=== PATIENT | female | born 1950 | race Caucasian/White ===

== ENCOUNTER 2020-01-27 14:22 | Outpatient (CLI) | payer MEDICARE, SELFPAY ==
--- NOTE | ~2020-01-27 | MM_ITS ---
EXAMINATION: MM screening [place]onak BI w dony HISTORY: Screening TECHNIQUE: Craniocaudal and mediolateral oblique 3-D tomosynthesis images were obtained and synthetic 2-D images were generated. CAD analysis was submitted and interpreted. COMPARISON: No prior mammogram is available for comparison at this institution. BREAST PARENCHYMAL COMPOSITION: The breasts are heterogeneously dense, which may obscure small masses . FINDINGS: Possible new approximately 1.6 cm mass in posterior upper outer right breast. Diagnostic ri ght mammogram and right breast ultrasound examination are recommended. Otherwise there is no evidence of suspicious mass, calcification, or architectural distortion to sugg est malignancy in either breast. There has been no suspicious interval change. IMPRESSION: 1. New 1.6 cm mass suggested in posterior upper outer right breast 2. Diagnostic right mammogram and right breast ultrasound examination are recommended BI-RADS Category 0: Incomplete: Needs additional imaging evaluation. Reviewed, dictated and finalized at location A. IMPRESSION: 1. New 1.6 cm mass suggested in posterior upper outer right breast 2. Diagnostic right mammogram and right breast ultrasound examination are recom mended BI-RADS Category 0: Incomplete: Needs additional imaging evaluation.
== END 2020-01-27 14:23 | disposition home or self-care (01) ==
LOC: ANHIMG 14:24
PROVIDERS: PCP Obstetrics & Gynecology; Visit Provider Obstetrics & Gynecology
DX: Z12.31 Encounter for screening mammogram for malignant neoplasm of breast (principal); R92.8 Other abnormal and inconclusive findings on diagnostic imaging of breast
CPT/HCPCS: 77063; 77067

== ENCOUNTER 2020-02-10 11:13 | Outpatient (CLI) | payer MEDICARE, SELFPAY ==
--- NOTE | ~2020-02-10 | MM_ITS ---
EXAMINATION: MM diagnostic mammo unilat RT HISTORY: Follow-up TECHNIQUE: Additional 3-D tomosynthesis images of the right breast were performed and synthetic 2-D i mages were generated. CAD analysis was submitted and interpreted. COMPARISON: Comparison to multiple prior studies sequentially, with oldest reviewed study dated 08/25. BREAST PARENCHYMAL COMPOSITION: The breasts are heterogenously dense, which may obscure small masses. FINDINGS: Stable benign-appearing mass in the upper outer quadrant of the right breast which contains a mixture of fatty and fibroglandular tissue (i.e. mammary hamartoma). No suspicious masses to sugge st malignancy. IMPRESSION: 1. Stable right mammogram. Benign findings. 2. Routine yearly screening mammogram and regular clinical breast examination are recommended. BI-RADS Category 2: Benign finding(s). Reviewed, dictated and finalized at location A. IMPRESSION: 1. Stable right mammogram. Benign findings. 2. Routine yearly screening mammogram and regular clinical breast examination a re recommended. BI-RADS Category 2: Benign finding(s).
== END 2020-02-10 11:14 | disposition home or self-care (01) ==
PROVIDERS: PCP Obstetrics & Gynecology; Visit Provider Obstetrics & Gynecology
DX: R92.8 Other abnormal and inconclusive findings on diagnostic imaging of breast (principal)
CPT/HCPCS: 77065

== ENCOUNTER 2020-03-30 07:38 | Outpatient (CLI) | payer MEDICARE, SELFPAY ==
--- NOTE | ~2020-03-30 | NM_ITS ---
NM stress w perf spect multi Procedure: The patient was stressed using Modified Johan protocol. Prior to the end of exercise 30.8 mCi Tc 99m IV administered. Rest imaging performed following administration of 10.3 mCi Tc 99m IV. Images were reformatted into short axis, horizontal and vertical long axis sections for visual and q uantitative analysis. Indication: Chest pain Comparison: None Findings: Computer assisted qualitative and quantitative analysis of the immediate and delayed images revealed normal left ventricular perfusion without evidence of fixed or reversible perfusion abnorma lity to suggest ischemia or infarction. Normal left ventricular cavity size, wall motion and ejectio n fraction. Left ventricular ejection fraction measures 76%. Impression: 1: No scintigraphic evidence of resting or stress induced perfusion abnormality. 2: Normal left ventricle ejection fraction measuring 76%. Reviewed, dictated and finalized at location B. Impression: 1: No scintigraphic evidence of resting or stress induced perfusion abnormality . 2: Normal left ventricle ejection fraction measuring 76%.
--- NOTE | 2020-03-30 08:59 | ECG_ITS ---
Measurements Intervals [place] Rate: 81 P: -14 [place]: 152 QRS: 12 QRSD: 82 T: 9 QT: 385 QTc: 447 Interpretive Statements SINUS RHYTHM INCOMPLETE RIGHT BUNDLE BRANCH BLOCK LOW QRS VOLTAGE IN PRECORDIAL LEADS BORDERLINE ECG Electronically Signed On 03-30-2020 10:10:57 CDT by Arden Azar D.O.
--- NOTE | 2020-03-30 08:59 | EST_ITS ---
Patient Info Name: Na Stoll Age: 69 years : 1950 Gender: Female Ht: 63 in Wt: 157 lbs BSA: 1.80 m2 Exam Date: 03/30/2020 9:31 AM Exam Location: [facility] Stress Patient Status: Outpatient Admit Date: 03/30/2020 Staff Ordering Physician: Sesar Altman MD Attending Provider: Sesar Altman MD Exercise Technologist: Sienna Dickson RDCS Exercise Physician: Arden Azar DO Exam Type: CA stress test treadmill w NM Study Info Indications R07.89 - Other chest pain A pharmacological stress test was performed. Summary 1. 1. Negative Johan exercise stress test for ischemic ST changes by ECG criteria. 2. 2. Good functional capacity, achieving 7 METs of workload. 3. 3. Appropriate HR response to exercise. 4. 4. Appropriate HR recovery at 1 minute post exercise. 5. 5. Nuclear scan to follow and will be reported separately. Please correlate with it. 6. 6. Patient informed of the above results. Protocol: Johan Stress ECG Details Stage: REST Duration (min): 6 min : 14 sec Speed (mph): 0.0 Grade (%): 0 HR (bpm): 73 SBP (mmHg): 133 DBP (mmHg): 83 METS: --- Stage: REST Duration (min): 14 min : 2 sec Speed (mph): 0.0 Grade (%): 0 HR (bpm): 85 SBP (mmHg): 133 DBP (mmHg): 83 METS: --- Stage: STAGE 1 Duration (min): 1 min : 0 sec Speed (mph): 1.7 Grade (%): 10 HR (bpm): 108 SBP (mmHg): 133 DBP (mmHg): 83 METS: --- Stage: STAGE 1 Duration (min): 2 min : 0 sec Speed (mph): 1.7 Grade (%): 10 HR (bpm): 118 SBP (mmHg): 133 DBP (mmHg): 83 METS: --- Stage: STAGE 1 Duration (min): 3 min : 0 sec Speed (mph): 1.7 Grade (%): 10 HR (bpm): 123 SBP (mmHg): 179 DBP (mmHg): 82 METS: --- Stage: STAGE 2 Duration (min): 1 min : 0 sec Speed (mph): 2.5 Grade (%): 12 HR (bpm): 134 SBP (mmHg): 179 DBP (mmHg): 82 METS: --- Stage: STAGE 2 Duration (min): 2 min : 0 sec Speed (mph): 2.5 Grade (%): 12 HR (bpm): 141 SBP (mmHg): 192 DBP (mmHg): 84 METS: --- Stage: STAGE 2 Duration (min): 2 min : 30 sec Speed (mph): 2.5 Grade (%): 12 HR (bpm): 143 SBP (mmHg): 192 DBP (mmHg): 84 METS: --- Stage: RECOVERY Duration (min): 0 min : 29 sec Speed (mph): 0.0 Grade (%): 0 HR (bpm): 138 SBP (mmHg): 192 DBP (mmHg): 84 METS: --- Stage: RECOVERY Duration (min): 1 min : 29 sec Speed (mph): 0.0 Grade (%): 0 HR (bpm): 105 SBP (mmHg): 197 DBP (mmHg): 82 METS: --- Stage: RECOVERY Duration (min): 2 min : 29 sec Speed (mph): 0.0 Grade (%): 0 HR (bpm): 92 SBP (mmHg): 197 DBP (mmHg): 82 METS: --- Stage: RECOVERY Duration (min): 3 min : 29 sec Speed (mph): 0.0 Grade (%): 0 HR (bpm): 87 SBP (mmHg): 166 DBP (mmHg): 79 METS: --- Stage: RECOVERY
== END 2020-03-30 07:39 | disposition home or self-care (01) ==
LOC: ANHCARD 07:42
PROVIDERS: PCP Internal Medicine; Visit Provider Internal Medicine
DX: I10 Essential (primary) hypertension (principal); R94.31 Abnormal electrocardiogram [ECG] [EKG]; I45.10 Unspecified right bundle-branch block
CPT/HCPCS: 78452; 93005; 93017; A9502

== ENCOUNTER 2021-10-03 10:41 | Outpatient (CLI) | payer MEDICARE, SELFPAY ==
--- NOTE | ~2021-10-03 | MR_ITS ---
EXAMINATION: MR knee LT wo con DATE: 10/03/2021 11:24 INDICATION: Left knee pain TECHNIQUE: Magnetic resonance imaging (MRI) of the left knee was performed without intravenous contra st. Sequences included coronal PD-weighted FSE, coronal PD-weighted FS FSE, sagittal T2-weighted FSE , sagittal PD-weighted FS FSE and axial PD weighted fat saturated FSE. COMPARISON: Left knee radiographs dated 09/22/2021 FINDINGS: Medial compartment: Complex tear of the body and posterior horn of the medial meniscus. Partial-thickness cartilage loss and deep fissuring along the anterior to central weightbearing medial femoral condyle. There is minim al cortical irregularity along the central weightbearing medial femoral condyle. Mild partial-thickne ss cartilage loss with smooth chondral surface along the medial tibial plateau. Small marginal osteop hytes are present. Lateral compartment: Lateral meniscus is normal. Articular cartilage is normal. Patellofemoral compartment: Partial-thickness chondral ulceration with mild underlying cortical irregularity along the inferior m argin of the medial trochlea. Small marginal osteophytes are present. Ligaments and tendons: Anterior and posterior cruciate ligaments are normal. The medial collateral ligament and fibular jeannette ateral ligament complex are normal. The extensor mechanism is normal. The visualized medial and later al hamstring tendons as well as the iliotibial band are normal. Fluid: Moderate-sized left knee joint effusion. No loose osteochondral bodies identified. Moderate-sized Redd er's cyst measuring 6.0 x 2.9 x 1.4 cm. Osseous/other: Normal marrow signal. No fracture or pathologic marrow replacing process. IMPRESSION: 1. Complex medial meniscal tear. 2. 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 3. Minimal patellofemoral osteoarthritis with small region of high-grade chondromalacia. 4. Moderate-sized left knee joint effusion and moderate-sized Boyd's cyst. Reviewed, dictated and finalized at location B. IMPRESSION: 1. Complex medial meniscal tear. 2. Mild osteoarthritis in the medial compartment with moderate to high-grade ch ondromalacia. 3. Minimal patellofemoral osteoarthritis with small region of high-grade chondr omalacia. 4. Moderate-sized left knee joint effusion and moderate-sized Boyd's cyst.
== END 2021-10-03 10:42 | disposition home or self-care (01) ==
LOC: ANHIMG 10:45
PROVIDERS: PCP Internal Medicine; Visit Provider Orthopaedic Surgery
DX: S83.232A Complex tear of medial meniscus, current injury, left knee, initial encounter (principal); X58.XXXA Exposure to other specified factors, initial encounter; M17.12 Unilateral primary osteoarthritis, left knee; M25.462 Effusion, left knee; M71.22 Synovial cyst of popliteal space [Baker], left knee
CPT/HCPCS: 73721

== ENCOUNTER 2021-10-18 09:32 | Outpatient (CLI) | payer MEDICARE, SELFPAY ==
--- NOTE | 2021-10-18 09:42 | ECG_ITS ---
Measurements Intervals [place] Rate: 95 P: 52 [place]: 120 QRS: 13 QRSD: 89 T: 11 QT: 359 QTc: 453 Interpretive Statements SINUS RHYTHM BORDERLINE T WAVE ABNORMALITY- INFERIOR LEADS BASELINE ARTIFACT- I, III, AVL, AVF, V1, V5-V6 BORDERLINE ECG Electronically Signed On 10-18-2021 9:52:26 CDT by Arden Azar D.O.
== END 2021-10-18 09:33 | disposition home or self-care (01) ==
LOC: ANHSURGERY 09:35
PROVIDERS: PCP Internal Medicine; Visit Provider Orthopaedic Surgery
DX: I10 Essential (primary) hypertension (principal); Z01.818 Encounter for other preprocedural examination; R94.31 Abnormal electrocardiogram [ECG] [EKG]
CPT/HCPCS: 93005

== ENCOUNTER 2021-10-26 02:09 | Day surgery (SDC) | payer MEDICARE, SELFPAY ==
[2021-10-14 10:59] VITALS: BMI 27.9
--- NOTE | 2021-10-14 11:08 | PC.NURSE ---
Report to the Outpatient Waiting Room, entrance under the green pavilion located off [facility], at time _0900_ on date _10/26/21_. OR Time: _1100_. - You and your visitor will be asked a series of questions to screen for COVID 19 for your protection. - Only one visitor is allowed at this time. - The patient visitor is requested to leave or wait in car when not with patient. - A mask is required within the hospital. Patients may have clear liquids (water, carbonated beverages, clear teas, apple juice) until 3 hours prior to surgery (0800 AM) with a maximum of 20 ounces. - No food from midnight until time of surgery Take the following medications with a SIP of water the morning of surgery: _NONE_ Medications to discontinue per ANESTHESIA - VITAMIN D3 - 3 DAYS PRIOR TO SURGERY, Date to take last dose 10/22/21_ Please no make-up, nail faroese, hairspray, perfume, deodorant, or body powder the day of surgery. No jewelry (including any body piercings) or valuables the day of surgery, leave them at home. Please take a shower or bath the night before, or the morning of, surgery with an antibacterial soap. Wear comfortable, loose fitting clothing. - Jewelry must be removed prior to entering the operating room. Rings and piercings that are not removed may be cut off. - The hospital will not accept responsibility for valuables. - Please leave all valuables, including medications, at home the day of surgery. If you are going home after surgery, a licensed stake driver must drive you home. - NO public transportation without another adult. - We recommend that an adult stay with you for 24 hours following discharge. - We also recommend that you do not drive, make important decision, drink alcoholic beverages, or take any drugs that were not prescribed by your health care provider for at least 24 hours after your discharge time. Follow any additional instructions given to you from your surgeon. If you or anyone in your household have experienced Covid symptoms in the past week, please notify your surgeon or the nurse liaison at the phone number below for possible testing. Telephone instructions given to ____PT and asked if any additional questions and then verbalized understanding. Patient advised to call surgeon office or pre surgery nurse liaison [phone] if any additional questions.
--- NOTE | 2021-10-25 09:31 | WPDANESEPPF ---
Anes - Initial Pre Proc Eval Procedure: Operation Date: 10/26/21 07:30 Proposed Procedures p Left Knee Arthroscopy - Lewis Cristobal MD Date/Time: 10/25/21 09:31 Surgeon: Lewis Cristobal MD Pre Op Diagnosis: Lt Knee Recurrent Medial Meniscus Tear Patient Data Age: 70 Gender: F Height: 1.61 m Weight: 72.72 kg Allergies Allergy/AdvReac Type Severity Reaction Status Date / Time No Known Allergies Allergy Verified 10/26/21 06:24 Home Medications Medication Instructions Recorded Confirmed Type Vascepa 1 gram capsule 2 g PO BID 90 Days #360 cap NS 04/06/21 10/26/21 Rx cetirizine [Zyrtec] 10 mg PO QAM 10/14/21 10/26/21 History cholecalciferol (vitamin D3) 125 mcg PO QAM 10/14/21 10/26/21 History fluticasone propionate [Flonase 2 spray NASAL HS 10/14/21 10/26/21 History Allergy Relief] lisinopril-hydrochlorothiazide 1 tablet PO HS 10/14/21 10/26/21 History metformin 500 mg PO QAM 10/14/21 10/26/21 History omeprazole 40 mg PO QAM 10/14/21 10/26/21 History rosuvastatin [Crestor] 40 mg PO HS 10/14/21 10/26/21 History denosumab 60 mg/mL subcutaneous 60 mg SUBCUT [id number] #1 ml 10/18/21 10/26/21 Rx syringe Patient hx anesthesia problems: none Family hx anesthesia problems: none Results Review: All pre-operative results and documents have been reviewed as part of the pre-operative evaluation. [facility] Past Medical History Medical History (Updated 10/25/21 @ 09:32 by Jeramie Dockery MD) Benign essential hypertension GERD (gastroesophageal reflux disease) Mixed hyperlipidemia Nondisplaced fracture of distal end of radius with routine healing Overweight (BMI 25.0-29.9) Type 2 diabetes mellitus without complication Family History Family History Father Hypertension Cerebrovascular accident Family history of alcoholism Sibling Hypertension Family history of malignant neoplasm Social History Social History (Updated 10/10/21 @ 11:26 by Aline Hendrickson MA) Smoking status: Never smoker Second hand tobacco smoke exposure: No Alcohol intake: current Alcohol use details: STATES MAYBE 1 DRINK/MONTH Substance use: never Substance use type: does not use Living arrangements: with family Gender identity (if verbalized by the patient): Female Spiritual care concerns: No Anes - Eval Final PreProcedure Day of Procedure 10/25/21 09:31 Patient weight: overweight Heart: regular rate and rhythm Lungs: clear to auscultation and normal air movement Airway: Mallampati scale class II Neurological: alert and oriented Last oral intake: >/= 8 hours ASA classification: III Emergent: no Anesthetic plan: proceed Anesthesia type and monitoring: general LMA Results Review: All pre-operative results and documents have been reviewed as part of the pre-operative evaluation. Informed Consent: The patient's anesthetic plan and its attendant risks and benefits were discussed with the patient/family/POA. Questions were solicited and answers provided to the satisfaction of the patient/family/POA.
[2021-10-26] VITALS (10 sets, daily range): BP systolic 113–140; BP diastolic 60–91; PULSE 79–96; RESP 12–20; TEMP 36.1–36.6; O2SAT 92–100
[2021-10-26] MEDS: ACETAMINOPHEN 500 MG TABLET 1000 MG PO (06:26)
[2021-10-26] MEDS: CELECOXIB 200 MG CAPSULE PO (06:27)
[2021-10-26] MEDS: LACTATED RINGERS 1,000 ML 30 ML IV CONT ×2 (06:35→09:18)
[2021-10-26 06:52] LABS: Glucose Point of Care 143 mg/dl (65-105)
--- NOTE | 2021-10-26 07:47 | WPDHPUPDATE1 ---
History and Physical Update Update Date/Time: 10/26/21 07:47 History and Physical has been reviewed, including an updated exam of the patient. There are NO changes in the patient's condition. Risks, benefits, and alternatives have been discussed and questions answered. Patient agrees to proceed with procedure.
[2021-10-26] MEDS: ceFAZolin 2 GM/D5W 50 ML 2 GM/50 ML BAG IVPB (07:53)
--- NOTE | 2021-10-26 09:30 | W.PM.PROC2 ---
Procedure Note - Detailed Date of Procedure 10/26/21 Pre-op Diagnosis Lt Knee Recurrent Medial Meniscus Tear Post-op Diagnosis Other (LEFT MEDIAL AND LATERAL MENISCUS TEAR) Procedure Performed LEFT KNEE SCOPE Surgeon Lewis Cristobal MD Anesthesia General Description of Procedure PATIENT WAS TAKEN TO THE OR. THE LEFT LEG WAS PREPPED AND DRAPED STERILE. TROCARS WERE PLACED IN THE USUAL FASHION. CAMERA WAS INTRODUCED. THERE WAS CHONDROMALACIA TO THE PATELLA FEMORAL JOINT. THERE WAS A LOT OF SYNOVITIS IN ALL COMPARTMENTS. THE MEDIAL COMPARTMENT SHOWED CHONDROMALACIA TO THE MEDIAL FEMORAL CONDYLE. A SHAVER WAS USED TO PREFORM A CHONDROPLASTY. THERE WAS A LARGE COMPLEX MEDIAL MENISCUS TEAR. THE TEAR WAS RESECTED WITH A BITER AND A SHAVER DOWN TO A SMOOTH BASE. THE ACL WAS INTACT. THE LATERAL MENISCUS WAS TORN AT THE MID SECTION. THE TEAR WAS RESECTED. THE LAT COMPARTMENT HAD MINIMAL CHONDROMALACIA AT THE LATERAL PLATEAU AND LATERAL FEMORAL CONDYLE. CHONDROPLASTY WAS PREFORMED. A SYNOVECTOMY WAS PREFORMED WELL. THE PATELLO FEMORAL JOINT UNDERWENT CHONDROPLASTY. THERE WAS GRADE 3 CHONDROMALACIA IN LARGE PART OF THE TROCHLEA AND PART OF THE PATELLA. SYNOVECTOMY WAS PREFORMED IN THE SUPERIOR MEDIAL COMPARTMENT. THE WOUNDS WERE APPROXIMATED WITH 4.0 NYLON. STERILE DRESSING WAS APPLIED. PATIENT WAS EXTUBATED. Estimated Blood Loss -10.0 Complications No immediate complications Condition Stable Disposition PACU
[2021-10-26 09:32] LABS: Glucose Point of Care 127 mg/dl (65-105)
[2021-10-26] MEDS: fentaNYL CITRATE INJ (*CRX) 100 MCG/2 ML VIAL 25 MCG IV PUSH ×2 (09:57→10:03)
== END 2021-10-26 11:32 | disposition home or self-care (01) ==
PROVIDERS: PCP Internal Medicine; Visit Provider Orthopaedic Surgery
PROC: (CPT 29870; principal; 2021-10-26 07:30)
DX: M23.232 Derangement of other medial meniscus due to old tear or injury, left knee (principal); M23.262 Derangement of other lateral meniscus due to old tear or injury, left knee; M22.42 Chondromalacia patellae, left knee; M65.862 Other synovitis and tenosynovitis, left lower leg; I10 Essential (primary) hypertension; E78.2 Mixed hyperlipidemia; K21.9 Gastro-esophageal reflux disease without esophagitis; E11.9 Type 2 diabetes mellitus without complications
CPT/HCPCS: 29880; 82948; 93005; A9270; J0690; J1100; J1200; J2250; J2405; J2704; J3010; J7120

== ENCOUNTER 2021-12-14 13:02 | Outpatient (CLI) | payer MEDICARE, SELFPAY ==
--- NOTE | ~2021-12-14 | MM_ITS ---
EXAMINATION: MM screening [place]onak BI w dony HISTORY: Screening TECHNIQUE: Craniocaudal and mediolateral oblique 3-D tomosynthesis images were obtained and synthetic 2-D images were generated. CAD analysis was submitted and interpreted. COMPARISON: Comparison to multiple prior studies sequentially, with oldest reviewed study dated 08/30. BREAST PARENCHYMAL COMPOSITION: The breasts are heterogenously dense, which may obscure small masses FINDINGS: Bilateral breast asymmetries are stable. There is no evidence of suspicious mass, calcifica tion, or architectural distortion to suggest malignancy in either breast. There has been no suspiciou s interval change. IMPRESSION: 1. No mammographic evidence of malignancy. 2. Recommend routine screening mammography in one year. BI-RADS Category 1: Negative Reviewed, dictated and finalized at location A.
== END 2021-12-14 13:03 | disposition home or self-care (01) ==
LOC: ANHIMG 13:03
PROVIDERS: PCP Internal Medicine; Visit Provider Internal Medicine
DX: Z12.31 Encounter for screening mammogram for malignant neoplasm of breast (principal)
CPT/HCPCS: 77063; 77067

== ENCOUNTER 2022-03-26 19:44 | Emergency (ER) | payer MEDICARE, SELFPAY ==
--- NOTE | 2022-03-26 20:43 | PC.NURSE ---
Left prior to triage.
== END 2022-03-26 20:43 | disposition left against medical advice (07) ==
PROVIDERS: PCP Internal Medicine
DX: Z53.21 Procedure and treatment not carried out due to patient leaving prior to being seen by health care provider (principal)
CPT/HCPCS: 99199

== ENCOUNTER 2022-03-27 11:38 | Emergency (ER) | payer MEDICARE, SELFPAY ==
--- NOTE | ~2022-03-27 | XR_ITS ---
EXAMINATION: XR chest 1V portable INDICATION: Lower limb edema TECHNIQUE: Portable AP chest at 1302 hours COMPARISON: 07/31/2018 FINDINGS: The lungs are free of acute opacities. No pleural effusion or pneumothorax. Calcified left hilar lymph nodes are consistent with old granulomatous disease. Orthopedic stabilization hardware is present in the proximal right humerus. There is partially imaged cervical spine fusion hardware. IMPRESSION: 1. No acute cardiopulmonary abnormality. Reviewed, dictated and finalized at location A.
--- NOTE | ~2022-03-27 | US_ITS ---
EXAMINATION: US venous doppler [facility] DATE: 03/27/2022 13:30 INDICATION: Left lower limb swelling TECHNIQUE: Celeste scale images without and with compression and Doppler images of the left lower extrem ity veins were obtained. COMPARISON: 01/27/2010 FINDINGS: The left common femoral vein, profunda femoral vein, femoral vein, popliteal vein, peroneal trunk, posterior tibial veins, and greater saphenous vein are patent. IMPRESSION: 1. Patent left lower extremity veins. No evidence of deep venous thrombosis. Reviewed, dictated and finalized at location A.
[2022-03-27 11:53] VITALS: BP 141/76; PULSE 94; RESP 18; TEMP 36.4; O2SAT 99
--- NOTE | 2022-03-27 12:30 | ED.LOWEXIN ---
HPI - Extremity Injury (Lower) General Chief Complaint: Extremity Problem,Nontraumatic Stated Complaint: left leg swelling, pain Time Seen by Provider: 03/27/22 12:29 Source: patient Mode of arrival: ambulatory Limitations: no limitations History of Present Illness HPI Narrative: 71 years old white female presented to the ED complaining of left leg pain and swelling for a while. Patient is status post left knee surgery on October 2021, cortisone injection of the left knee on December 30, last few days started feeling more pain at the left lower leg posteriorly. History of left Boyd's cyst. Patient denies any fever, chills, nausea, vomiting, rash, history of deep vein thrombosis Related Data Home Medications Medication Instructions Recorded Confirmed cetirizine 10 mg tablet (Zyrtec) 10 mg PO QAM 10/14/21 11/28/21 cholecalciferol (vitamin D3) 125 125 mcg PO QAM 10/14/21 11/28/21 mcg (5,000 unit) capsule fluticasone propionate 50 2 spray intranasal HS 10/14/21 11/28/21 mcg/actuation nasal spray,suspension (Flonase Allergy Relief) Allergies Allergy/AdvReac Type Severity Reaction Status Date / Time No Known Allergies Allergy Verified 03/27/22 13:06 Review of Systems Review of Systems: All systems reviewed & are unremarkable except as noted in HPI and below PMFSH Past Medical History Medical History Benign essential hypertension GERD (gastroesophageal reflux disease) Mixed hyperlipidemia Nondisplaced fracture of distal end of radius with routine healing Overweight (BMI 25.0-29.9) Type 2 diabetes mellitus without complication Family History Family History Father Hypertension Cerebrovascular accident Family history of alcoholism Sibling Hypertension Family history of malignant neoplasm Social History Social History Smoking status: Never smoker Second hand tobacco smoke exposure: No Alcohol intake: current Alcohol use details: STATES MAYBE 1 DRINK/MONTH Substance use: never Substance use type: does not use Gender identity (if verbalized by the patient): Female Spiritual care concerns: No Exam Narrative: General appearance: Well-developed, well-nourished Skin: Normal color Head: Normocephalic, nontraumatic Eyes: Clear conjunctiva ENT: Oropharynx normal, ears normal, nose normal Neck: Supple, nontender Chest and respiratory: Airway patent, no respiratory distress, no accessory muscle use Heart: Regular rate/rhythm Abdomen: Soft, nontender, no organomegaly, quiet bowel sounds Vascular: Normal peripheral pulses, normal capillary refill. Musculoskeletal: Left lower leg is slightly more swollen than the right plan, slight posterior tenderness, no bruises, no rash, left knee showed no acute abnormalities, slightly limited range of motion Neurologic: Alert and oriented ?3, GAUGE CHECKER is normal as tested, no gross motor deficit Course Course Emergency Course: Left lower leg pain and swelling highly secondary to the recent knee surgery and recent cortisone injection in the knee, physical exam showed limited range of motion of left knee although the knee looks within normal limits. Patient was advised to follow-up with her orthopedic and keep her leg elevated and use compression stocking. Vital Signs Vital signs: Vital Signs Temperature 36.4 C L 03/27/22 11:53 Pulse Rate 94 03/27/22 11:53 Respiratory Rate 18 03/27/22 11:53 Blood Pressure 141/76 H 03/27/22 11:53 Pulse Oximetry 99 03/27/22 11:53 Oxygen Delivery Room Air 03/27/22 11:53 [place]
--- NOTE | 2022-03-27 12:31 | ECG_ITS ---
Measurements Intervals [place] Rate: 91 P: 57 [place]: 140 QRS: 14 QRSD: 93 T: 18 QT: 359 QTc: 443 Interpretive Statements SINUS RHYTHM POSSIBLE LEFT ATRIAL ENLARGEMENT [-0.1mV P WAVE IN V1/V2] LOW QRS VOLTAGE IN PRECORDIAL LEADS [QRS DEFLECTION < 1.0 mV IN CHEST LEADS] COMPARED TO ECG 10/18/2021 09:49:56 NO SIGNIFICANT CHANGES Electronically Signed On 03-27-2022 14:01:11 CDT by Elias Shepherd M.D.
[2022-03-27 13:00] LABS: Basophils Absolute Auto 0.1 K/mm3 (0.0-0.1); Basophils Percent Auto 0.8 % (0.2-1.2); Eosinophils Absolute Auto 0.4 K/mm3 (0-0.3); Eosinophils Percent Auto 6.6 % (0-4.4); Immature Granulocyte Absolute 0.02 K/mm3 (0.00-0.031); Immature Granulocyte Percent A 0.3 % (0-0.5); Lymphocytes Absolute Auto 1.76 K/mm3 (0.9-3.2); Lymphocytes Percent Auto 27.8 % (18.3-44.2); Mean Corpuscular HGB Conc 33.3 g/dl (32-36); Mean Corpuscular Hemoglobin 29.3 pg (26-34); Mean Platelet Volume 10.7 fl (7.4-10.4); Monocytes Absolute Auto 0.7 K/mm3 (0.1-0.6); Monocytes Percent Auto 10.7 % (2.6-8.5); Neutrophils Absolute Auto 3.4 K/mm3 (1.3-6.7); Neutrophils Percent Auto 53.8 % (45.5-73.1); Platelet Count Result 216 k/mm3 (150-375); Red Blood Count 4.43 M/mm3 (4.2-5.4); Red Cell Distribution Width 13.9 % (11.5-14.5); White Blood Count 6.3 K/mm3 (4.5-10.0)
[2022-03-27 13:08] LABS: Alanine Aminotransferase 42 U/L (6-35); Albumin Level 4.6 g/dL (3.5-5.1); Alkaline Phosphatase 58 U/L (38-126); Anion Gap 12 mmol/L (8-16); Aspartate Amino Transferase 49 U/L (14-36); Bilirubin,Total 0.4 mg/dL (0.2-1.3); Blood Urea Nitrogen 17 mg/dL (7-17); Calcium 9.3 mg/dL (8.4-10.2); Carbon Dioxide 24 mmol/L (22-30); Chloride 101 mmol/L (98-107); Estimated CRCL calculation 86 ml/min; Estimated Glomerular Filt Rate > 60; Glucose 96 mg/dL (65-110); Potassium 4.1 mmol/L (3.4-5.0); Sodium 137 mmol/L (137-145)
[2022-03-27 13:12] LABS: Prothrombin Time 13.2 Seconds (11.1-14.7)
[2022-03-27 13:13] LABS: Partial Thromboplastin Time 29.5 SECONDS (22.3-36.8)
[2022-03-27 13:16] LABS: NT Pro B Type Natriuretic Pept 37 pg/mL (5-100)
[2022-03-27 13:19] LABS: Troponin I < 0.012 ng/mL (0.000-0.034)
[2022-03-27 13:28] LABS: D Dimer 1.11 ug/mL (<0.48)
[2022-03-27 13:58] VITALS: BP 145/84; PULSE 98; RESP 18; O2SAT 100
== END 2022-03-27 14:00 | disposition home or self-care (01) ==
PROVIDERS: Emergency Provider Emergency Medicine; PCP Internal Medicine
DX: M79.605 Pain in left leg (principal); I10 Essential (primary) hypertension; E78.2 Mixed hyperlipidemia; E11.9 Type 2 diabetes mellitus without complications; K21.9 Gastro-esophageal reflux disease without esophagitis; E66.3 Overweight; Z68.28 Body mass index [BMI] 28.0-28.9, adult; R94.31 Abnormal electrocardiogram [ECG] [EKG]
CPT/HCPCS: 36415; 71045; 80053; 83880; 84484; 85025; 85380; 85610; 85730; 93005; 93971; 99284

== ENCOUNTER 2022-12-25 13:14 | Outpatient (CLI) | payer MEDICARE, SELFPAY ==
--- NOTE | ~2022-12-25 | DEXA_ITS ---
Bone Density Report Name: GISSELLE GARNETT Age: 71 Sex: Female Ethnicity: White Date of : 1950 Indication: postmenopausal; screening for osteoporosis; prior fracture; hysterectomy; Referring Provider: REBEKAH SUAREZ Study: Bone densitometry was performed. Exam Date: December 25, 2022 Accession number: [id number] Bone Density: Region BMD T-score Z-score Classification AP Spine(L1-L4) 0.862 -1.7 0.5 Osteopenia Femoral Neck (Left) 0.642 -1.9 0.0 Osteopenia Total Hip (Left) 0.812 -1.1 0.5 Osteopenia Femoral Neck (Right) 0.595 -2.3 -0.4 Osteopenia Total Hip (Right) 0.791 -1.2 0.3 Osteopenia Total Hip Mean 0.802 -1.2 0.4 Osteopenia World Health Organization criteria for BMD impression classify patients as: Normal (T-score at or above -1.0), Osteopenia (T-score between -1.0 and -2.5), or Osteoporosis (T-score at or below -2.5). 10-year Fracture Risk: FRAX not reported because: Prior hip or vertebral fracture Treated for osteoporosis Clinical Information Provided by Patient: Have had a previous hip or vertebral fracture Has had a low trauma fracture Is being treated for osteoporosis Has used the following medications: Prolia (i.e. denosumab), Vitamin D Has the following medical conditions: Hysterectomy Patient maximum height was 64 Menopause Age: 50 Onset of menses at age 15 Number of children 2 Impression: The patient has low bone mass, based on the Right Femoral Neck T-score. The patient has risk factors, including: previous fracture. Discussion: It is important to ask patients whether they are taking their medications and to encourage continued and appropriate compliance with their osteoporosis therapies to reduce fracture risk. It is also important to review their risk factors and encourage appropriate calcium and vitamin D intakes, exercise, fall prevention and other lifestyle measures. Follow-Up: Consider a repeat BMD and Vertebral Fracture Assessment (VFA) exam in 2 years or sooner if medically necessary, to reassess this patient's status. Reported by: DONNA on 12/25/2022 2:28:00 PM. Reviewed, dictated and finalized at location AHerman TSANG
== END 2022-12-25 13:15 | disposition home or self-care (01) ==
LOC: ANHIMG 13:17
PROVIDERS: PCP Family Medicine; Visit Provider Nurse Practitioner Family
DX: M81.0 Age-related osteoporosis without current pathological fracture (principal); M85.88 Other specified disorders of bone density and structure, other site; M85.852 Other specified disorders of bone density and structure, left thigh; M85.851 Other specified disorders of bone density and structure, right thigh
CPT/HCPCS: 77080

== ENCOUNTER 2023-02-26 08:41 | Outpatient (CLI) | payer MEDICARE, SELFPAY ==
--- NOTE | ~2023-02-26 | MM_ITS ---
EXAMINATION: MM screening ronak BI w dony HISTORY: Screening TECHNIQUE: Craniocaudal and mediolateral oblique 3-D tomosynthesis images were obtained and synthetic 2-D images were generated. CAD analysis was submitted and interpreted. COMPARISON: Comparison to multiple prior studies sequentially, with oldest reviewed study dated 10/06. BREAST PARENCHYMAL COMPOSITION: Breast composed of scattered areas of fibroglandular density FINDINGS: There is no evidence of suspicious mass, calcification, or architectural distortion to sugg est malignancy in either breast. There has been no suspicious interval change. IMPRESSION: 1. No mammographic evidence of malignancy. 2. Recommend routine screening mammography in one year. BI-RADS Category 1: Negative Reviewed, dictated and finalized at location A.
== END 2023-02-26 08:42 | disposition home or self-care (01) ==
LOC: ANHIMG 08:45
PROVIDERS: PCP Family Medicine; Visit Provider Nurse Practitioner Family
DX: Z12.31 Encounter for screening mammogram for malignant neoplasm of breast (principal)
CPT/HCPCS: 77063; 77067

== ENCOUNTER → 2023-05-14 09:15 | Outpatient (CLI) | payer MEDICARE, SELFPAY ==
--- NOTE | ~2023-05-14 | MR_ITS ---
MRI of the left hip Clinical history: Fracture, labral tear Technique: Coronal T1-weighted, T2-weighted, and proton-density fat-sat images, and axial T1-weighted and proton-density fat-sat images were acquired through the pelvis. Coronal T2-weighted images and c oronal, axial, and sagittal proton-density fat-sat images were acquired through the left hip. Findings: There is no fracture, avascular necrosis, transient osteoporosis of either hip. Bone marrow signals of the proximal femora and visualized pelvic bones are unremarkable. Bilateral hip joint spa fel[place] are preserved. There is probable minimal chondral thinning of the left hip joint. Bilateral SI sushma ints are intact. No significant joint effusion identified. No definite labral tear identified. There is tendinosis with partial thickness tearing versus possibly bursitis at the insertion of the l eft gluteus medius tendon at the greater trochanter. Remaining musculature and tendons appear unremar kable. No other mass lesion or fluid collection seen. IMPRESSION: Severe tendinosis with probable partial thickness tearing, versus possibly bursitis, at the insertion of the left gluteus medius tendon at the greater trochanter. No labral tear evident. No fracture. Reviewed, dictated and finalized at location . [facility] TECH IMPRESSION: Severe tendinosis with probable partial thickness tearing, versus possibly burs itis, at the insertion of the left gluteus medius tendon at the greater trochan ter. No labral tear evident. No fracture.
== END ==
PROVIDERS: PCP Nurse Practitioner Family; Visit Provider Orthopaedic Surgery
DX: S73.102A Unspecified sprain of left hip, initial encounter (principal); X58.XXXA Exposure to other specified factors, initial encounter
CPT/HCPCS: 73721

== ENCOUNTER 2023-07-11 02:08 | Day surgery (SDC) | payer MEDICARE, SELFPAY ==
[2023-06-13 13:38] VITALS: BMI 27.0
--- NOTE | 2023-07-09 12:29 | SUR.PREOP ---
Patient called regarding upcoming procedure. Pt updated on arrival date and time. All questions answered.
--- NOTE | 2023-07-10 13:10 | PM.HPGS ---
History of Present Illness History of Present Illness Consent: Risks, benefits, and alternatives have been discussed and questions answered. Patient agrees to proceed with procedure. Chief complaint: neoplasm screening Narrative: Na Stoll is a 72 year old female Who was referred for colon cancer screening. Her brother had colon cancer. Her last colonoscopy was 6 years ago. Review of Systems Review of Systems: All systems reviewed & are unremarkable except as noted in HPI and below PMFSH Past Medical History Medical History Benign essential hypertension GERD (gastroesophageal reflux disease) Medial meniscus tear Mixed hyperlipidemia Nondisplaced fracture of distal end of radius with routine healing Overweight (BMI 25.0-29.9) Type 2 diabetes mellitus without complication Family History Family History Father Hypertension Cerebrovascular accident Family history of alcoholism Sibling Hypertension Family history of malignant neoplasm Social History Social History Smoking status: Never smoker Second hand tobacco smoke exposure: No Alcohol intake: current Alcohol use details: rare Substance use: never Substance use type: does not use Lack of Transportation: No Lack of Food: Never True Current Housing: I Have Housing Concerned About Future Housing: No Difficulty Paying Gas/Electric Bills: No Difficulty Paying for Meds: No Currently Unemployed: No Education: High School Diploma/GED Difficulty w/ Childcare or Family Care: No Living arrangements: with family Gender identity (if verbalized by the patient): Female Spiritual care concerns: No Meds Home Medications and Allergies Home Medications Medication Instructions Recorded Confirmed Type cetirizine 10 mg tablet (Zyrtec) 10 mg PO QAM 10/14/21 07/11/23 History cholecalciferol (vitamin D3) 125 125 mcg PO QAM 10/14/21 07/11/23 History mcg (5,000 unit) capsule fluticasone propionate 50 2 spray intranasal HS 10/14/21 07/11/23 History mcg/actuation nasal spray,suspension (Flonase Allergy Relief) omega 8-pda-sdq-fish oil 1,000 mg 1 cap PO BID #1 cap 10/25/22 07/11/23 Rx (120 mg-180 mg) capsule (Fish Oil) lisinopril 20 1 tablet PO HS #90 tabs 01/16/23 07/11/23 Rx mg-hydrochlorothiazide 12.5 mg tablet denosumab 60 mg/mL subcutaneous 60 mg subcut [id number] #1 mL 05/02/23 07/11/23 Rx syringe (Prolia) rosuvastatin 40 mg tablet (Crestor) 40 mg PO DAILY 05/02/23 07/11/23 History omeprazole 40 mg capsule,delayed See Rx Instructions .Route 05/11/23 07/11/23 Rx release .COMPLEX #90 caps ezetimibe 10 mg tablet 10 mg PO DAILY #90 tabs 05/24/23 07/11/23 Rx metformin 500 mg tablet 500 mg PO QAM #90 tabs 06/01/23 07/11/23 Rx Allergies Allergy/AdvReac Type Severity Reaction Status Date / Time No Known Allergies Allergy Verified 07/11/23 06:20 Exam Const: General: alert Orientation/consciousness: patient oriented x3 Resp: Auscultation: clear to auscultation bilaterally Cardio: Rhythm: regular rhythm GI: GI Palp: Yes Soft to palpation and No Tenderness to palpation present (GI) Neuro: General: patient oriented x3 Assessment and Plan Assessment and plan (1) Colon cancer screening: Code(s): Z12.11 - Encounter for screening for malignant neoplasm of colon Status: Acute Assessment and Plan: Colonoscopy with possible biopsy or polypectomy or cautery or injection of substances.
[2023-07-11 06:22] VITALS: BP 117/79; PULSE 91; RESP 20; TEMP 36.4; O2SAT 97; BMI 25.9
[2023-07-11] MEDS: LACTATED RINGERS 1,000 ML 150 ML IV CONT (06:24)
[2023-07-11 06:42] LABS: Glucose Point of Care 98 mg/dl (65-105)
--- NOTE | 2023-07-11 07:24 | WPDANESEPPF ---
Anes - Initial Pre Proc Eval Procedure: Operation Date: 07/11/23 07:30 Proposed Procedures p Screening Colonoscopy - Declan Velázquez MD Date/Time: 07/11/23 07:24 Surgeon: Declan Velázquez MD Pre Op Diagnosis: neoplasm screening Patient Data Age: 72 Gender: F Height: 1.63 m Weight: 68.7 kg Last Vital Signs Temp 97.5 F L 07/11/23 06:22 Pulse 91 07/11/23 06:22 Resp 20 07/11/23 06:22 BP 117/79 07/11/23 06:22 Pulse Ox 97 07/11/23 06:22 O2 Del Method Room Air 07/11/23 06:22 Allergies Allergy/AdvReac Type Severity Reaction Status Date / Time No Known Allergies Allergy Verified 07/11/23 06:20 Home Medications Medication Instructions Recorded Confirmed Type cetirizine 10 mg tablet (Zyrtec) 10 mg PO QAM 10/14/21 07/11/23 History cholecalciferol (vitamin D3) 125 125 mcg PO QAM 10/14/21 07/11/23 History mcg (5,000 unit) capsule fluticasone propionate 50 2 spray intranasal HS 10/14/21 07/11/23 History mcg/actuation nasal spray,suspension (Flonase Allergy Relief) omega 4-ddu-zcp-fish oil 1,000 mg 1 cap PO BID #1 cap 10/25/22 07/11/23 Rx (120 mg-180 mg) capsule (Fish Oil) lisinopril 20 1 tablet PO HS #90 tabs 01/16/23 07/11/23 Rx mg-hydrochlorothiazide 12.5 mg tablet denosumab 60 mg/mL subcutaneous 60 mg subcut [id number] #1 mL 05/02/23 07/11/23 Rx syringe (Prolia) rosuvastatin 40 mg tablet (Crestor) 40 mg PO DAILY 05/02/23 07/11/23 History omeprazole 40 mg capsule,delayed See Rx Instructions .Route 05/11/23 07/11/23 Rx release .COMPLEX #90 caps ezetimibe 10 mg tablet 10 mg PO DAILY #90 tabs 05/24/23 07/11/23 Rx metformin 500 mg tablet 500 mg PO QAM #90 tabs 06/01/23 07/11/23 Rx Laboratory Tests 07/11/23 06:40 POC Capillary Glucose 98 mg/dl (65-105) Patient hx anesthesia problems: none Family hx anesthesia problems: none Results Review: All pre-operative results and documents have been reviewed as part of the pre-operative evaluation. [facility] Past Medical History Medical History Benign essential hypertension GERD (gastroesophageal reflux disease) Medial meniscus tear Mixed hyperlipidemia Nondisplaced fracture of distal end of radius with routine healing Overweight (BMI 25.0-29.9) Type 2 diabetes mellitus without complication Family History Family History Father Hypertension Cerebrovascular accident Family history of alcoholism Sibling Hypertension Family history of malignant neoplasm Social History Social History Smoking status: Never smoker Second hand tobacco smoke exposure: No Alcohol intake: current Alcohol use details: rare Substance use: never Substance use type: does not use Lack of Transportation: No Lack of Food: Never True Current Housing: I Have Housing Concerned About Future Housing: No Difficulty Paying Gas/Electric Bills: No Difficulty Paying for Meds: No Currently Unemployed: No Education: High School Diploma/GED Difficulty w/ Childcare or Family Care: No Living arrangements: with family Gender identity (if verbalized by the patient): Female Spiritual care concerns: No Anes - Eval Final PreProcedure Day of Procedure 07/11/23 07:24 Patient weight: normal Heart: regular rate and rhythm Lungs: clear to auscultation Airway: Mallampati scale class II Neurological: alert and oriented Last oral intake: >/= 8 hours ASA classification: III Emergent: no Anesthetic plan: proceed Anesthesia type and monitoring: general GIVS and standard monitoring Results Review: All pre-operative results and documents have been reviewed as part of the pre-operative evaluation. Informed Consent: The patient's anesthetic plan and its attendant risks and benefits were discussed with the patient/family/POA. Questions were gloria
[2023-07-11 07:44] VITALS: BP 110/55; PULSE 72; RESP 17; O2SAT 100
[2023-07-11 07:54] VITALS: BP 94/56; PULSE 72; RESP 18; O2SAT 100
[2023-07-11 08:04] VITALS: BP 106/62; PULSE 67; RESP 21; O2SAT 100
== END 2023-07-11 08:11 | disposition home or self-care (01) ==
PROVIDERS: PCP Nurse Practitioner Family; Visit Provider Internal Medicine Gastroenterology
PROC: 0DJD8ZZ Inspection of Lower Intestinal Tract, Via Natural or Artificial Opening Endoscopic (ICD-10-PCS; CPT 45378; principal; 2023-07-11 07:30)
DX: Z12.11 Encounter for screening for malignant neoplasm of colon (principal); K57.30 Diverticulosis of large intestine without perforation or abscess without bleeding; Z80.0 Family history of malignant neoplasm of digestive organs; E78.2 Mixed hyperlipidemia; E11.9 Type 2 diabetes mellitus without complications; I10 Essential (primary) hypertension; K21.9 Gastro-esophageal reflux disease without esophagitis; Z79.84 Long term (current) use of oral hypoglycemic drugs
CPT/HCPCS: G0105; 82948; J2371; J2704; J7120

== ENCOUNTER 2023-11-19 10:53 | Outpatient (CLI) | payer MEDICARE, SELFPAY ==
--- NOTE | ~2023-11-19 | XR_ITS ---
Lumbosacral Spine: AP and lateral views Clinical History: Pain Findings: The normal lordotic curve is maintained. No fracture or subluxation. There is severe facet arthropathy throughout the lumbar spine. There is moderate to advanced degenerative disc change at L4 -L5 and L5-S1.. The sacroiliac joints are normally outlined. Impression: Moderate to advanced degenerative spondylosis, as detailed above. Reviewed, dictated and finalized at location M. Impression: Moderate to advanced degenerative spondylosis, as detailed above.
== END 2023-11-19 10:54 ==
PROVIDERS: PCP Nurse Practitioner Family; Visit Provider Nurse Practitioner Family
DX: M47.26 Other spondylosis with radiculopathy, lumbar region (principal)
CPT/HCPCS: 72100

== ENCOUNTER 2023-11-30 10:05 | Outpatient (CLI) | payer MEDICARE, SELFPAY ==
--- NOTE | ~2023-11-30 | MR_ITS ---
EXAMINATION: MR lumbar spine wo con DATE: 11/30/2023 10:35 INDICATION: Radiculopathy, site unspecified. Low back pain. Left hip pain. TECHNIQUE: Magnetic resonance imaging (MRI) of the lumbar spine was performed without intravenous con trast. Sequences included sagittal T2-weighted FSE, sagittal T2-weighted FS FSE, sagittal T1-weighted FSE, and axial T2-weighted FSE. COMPARISON: Lumbar spine radiograph 11/19/2023 FINDINGS: There is 9 degrees dextrocurvature of lumbar spine. There is 3 mm anterolisthesis of L3 on L4. There is mild chronic height loss of T12 vertebral body. There is mildly decreased disc height at L4-L5 and severely decreased disc height at L5-S1. The distal spinal cord signal intensity is normal . The conus medullaris is at L1-L2. The following disc levels are specifically discussed: L1-L2: The disc is bulging. There is severe bilateral facet joint osteoarthritis. There is mild bilat eral neural foraminal stenosis. There is mild central canal stenosis. L2-L3: The disc is bulging. There is severe right and moderate left facet joint osteoarthritis. There is mild bilateral neural foraminal stenosis. There is mild central canal stenosis. L3-L4: The disc is bulging and has an annular fissure. There is severe bilateral facet joint osteoart hritis. There is mild bilateral neural foraminal stenosis. There is mild central canal stenosis. L4-L5: The disc is bulging and has an annular fissure. There is severe bilateral facet joint osteoart hritis. There is mild bilateral neural foraminal stenosis. There is mild central canal stenosis. L5-S1: The disc is bulging and has an annular fissure. There is severe right and moderate left facet joint osteoarthritis. There is moderate right and mild left neural foraminal stenosis. There is mild central canal stenosis. IMPRESSION: 1. Severe lower lumbar spondylosis. Reviewed, dictated and finalized at location E.
== END 2023-11-30 10:06 ==
LOC: GOSHIMG 10:06
PROVIDERS: PCP Nurse Practitioner Family; Visit Provider Nurse Practitioner Family
DX: M47.26 Other spondylosis with radiculopathy, lumbar region (principal)
CPT/HCPCS: 72148

== ENCOUNTER 2024-01-30 13:34 | Outpatient (CLI) | payer MEDICARE, SELFPAY ==
--- NOTE | ~2024-01-30 | XR_ITS ---
EXAMINATION: XR lg joint inject/asp w image DATE: 01/30/2024 14:20 INDICATION: Osteoarthritis of left hip. TECHNIQUE: A time-out was performed to verify the patient's name, date of , and procedure to b e performed. The procedure including the risks, benefits, and alternatives was discussed with the pat ient. Risks discussed included bleeding and infection. The patient understood the risks and agreed to proceed. The skin overlying the left hip joint was prepped and draped in usual sterile fashion. An esthetic was administered with 1% lidocaine subcutaneously. A 22 G needle was advanced under fluoros copic guidance into the joint. Subsequently, injectate consisting of 4 mL 1% lidocaine and 0.5 mL 80 mg/mL Depo-Medrol was instilled. The needle was removed and the entry site was cleaned and dressed. There were no immediate complications. Fluoroscopy exposure time was 0.1 minutes. The total number of images was 1. FINDINGS: Real-time fluoroscopy demonstrates the needle in the left hip joint. Patient's pain prior t o procedure:3/10. Patient's pain following the procedure: 0/10. IMPRESSION: 1. Fluoroscopy guided left hip joint injection of local anesthetic and steroid with decrease in the p atient's presenting pain. Reviewed, dictated and finalized at location A. IMPRESSION: 1. Fluoroscopy guided left hip joint injection of local anesthetic and steroid with decrease in the patient's presenting pain.
== END 2024-01-30 13:35 | disposition home or self-care (01) ==
PROVIDERS: PCP Nurse Practitioner Family; Visit Provider Orthopaedic Surgery
DX: M16.12 Unilateral primary osteoarthritis, left hip (principal)
CPT/HCPCS: 20610; 77002; J1010

== ENCOUNTER 2024-04-29 09:22 | Outpatient (CLI) | payer MEDICARE, SELFPAY ==
--- NOTE | ~2024-04-29 | MM_ITS ---
EXAMINATION: MM screening ronak BI w dony HISTORY: Screening mammogram, family history of breast cancer in her daughter. TECHNIQUE: Craniocaudal and mediolateral oblique 3-D tomosynthesis images were obtained and synthetic 2-D images were generated. CAD analysis was submitted and interpreted. COMPARISON: 02/26/2023, 12/14/2021, 02/10/2020 BREAST PARENCHYMAL COMPOSITION:Dense: The breasts are heterogeneously dense, which may obscure small masses. FINDINGS: Stable possible bilateral breast hamartomas versus asymmetric fibroglandular density at the upper, outer quadrants. No suspicious mass, calcification, or architectural distortion are identifie d in either breast to suggest malignancy. There has been no suspicious interval change. IMPRESSION: No mammographic evidence of malignancy. Recommend routine screening mammography in one year. BI-RADS Category 2: Benign finding(s). Reviewed, dictated and finalized at [place] [facility]. E JACKER
== END 2024-04-29 09:23 | disposition home or self-care (01) ==
LOC: ANHIMG 09:23
PROVIDERS: PCP Nurse Practitioner Family; Visit Provider Nurse Practitioner Family
DX: Z12.31 Encounter for screening mammogram for malignant neoplasm of breast (principal)
CPT/HCPCS: 77063; 77067

== ENCOUNTER 2025-05-20 13:47 | Outpatient (CLI) | payer MEDICARE, SELFPAY ==
--- NOTE | ~2025-05-20 | MM_ITS ---
EXAMINATION: MM screening ronak BI w dony HISTORY: Screening. TECHNIQUE: Craniocaudal and mediolateral oblique 3-D tomosynthesis images were obtained and synthetic 2-D images were generated. CAD analysis was submitted and interpreted. COMPARISON: 2023, 2022, and 2021. BREAST PARENCHYMAL COMPOSITION: Dense: The breasts are heterogeneously dense FINDINGS: There are findings consistent with the known breast cysts. There are mixed density masses/masslike areas in both posterior upper outer quadrants which are consistent with hamartomata. No suspicious masses are seen. There are no suspicious calcifications. No unexplained architectural distortion is seen. There are no skin or nipple abnormalities identified. There is no adenopathy seen on the images submitted. IMPRESSION: No mammographic evidence to suggest malignancy is seen. The patient may return to screening mammography as per ACR guidelines. BI-RADS 2 - Benign. Reviewed, dictated and finalized at location C. ETUAL INVENTORY CLERK
--- OUTSIDE RECORDS SUMMARY | 2025-05-20 18:14 | XMS_ITS | Clinical Summary ---
Author Organization [facility] Care Team Providers Care Forklift Technician Name Role Phone Unavailable Primary Care Provider Unavailabl e Social History Tobacco Use Types Packs/Day Years Used Date Smoking Tobacco: Never Assessed Comments Unknown Sex and Gender Information Value Date Recorded Sex Assigned at Not on file Legal Sex Female 12:26 AM CDT Gender Identity Not on file Sexual Orientation Not on file Plan of Treatment Health Maintenance Due Date Last Done Comments Hepatitis C Virus (HCV) Screening 1950 TdaP Immunization 1950 Cologuard 12/26/1996 Colonoscopy 12/26/1996 Colorectal Cancer Screening 12/26/1996 Immunochemical Fecal Occult Blood 12/26/1996 Pneumococcal Immunization (5 0+ years) (1 of 1 - PCV) 12/26/2001 Zoster Immunization (1 of 2) 12/26/2001 Influenza Immunization (#1) 2025 SARS-COV-2 Immunization ( - season) 2025 Respiratory Syncytial Virus (RSV) Immunization (Adult) (1 - 1-dose 75+ series) 12/26/2026 Hepatitis B Immunization Aged Out No longer eligible based on patient's age to complete this topic Human Papillomavirus (HPV) Immunization Aged Out No longer eligible b ased on patient's age to complete this topic Meningococcal Immunization (ACWY) Aged Out No longer eligible based on patient's age to complete this topic Rotavirus Immunization Aged Out No lo nger eligible based on patient's age to complete this topic
--- OUTSIDE RECORDS SUMMARY | 2025-05-20 18:15 | XMS_ITS | Clinical Summary ---
Author Organization [facility] [facility] Address [address] [place] [address] Care Team Providers Care Marine Service Station Attendant Name Role Phone Kristopher Grande MD Primary Care Provider [phone] Source Comments [facility] [employer] [facility],non-owned Affiliates and Associated Physician Practices is amultiple site organization consisting of ambulatory clinics and hospital sitesin [place], [place], [place] and [place]. This disclosure is being madepursuant to the Care Everywhere program and may not contain all information available regarding this patient. Last updated 18.[facility] Allergies No known active allergies Medications * Be aware that medications may not be up to date on this document. Alwaysverify current medications with the patient. lisinopril (PRINIVIL; ZESTRIL) 20 MG tablet Take 20 mg by mouth daily. Active rosuvastatin (CRESTOR) 10 MG tablet Take 10 mg by mouth daily. Active estradiol (VIVELLE-DOT) 0.1 MG/24HR patch Apply 1 Patch to skin every 3 days. Active naproxen (NAPROSYN) 250 MG tablet Take 250 mg by mouth 2 times daily. Active ibandronate (BONIVA) 150 MG tablet Take 150 mg by mouth every 30 days. Active estradiol (VIVELLE-DOT) 0.05 MG/24HR patch Apply 1 Patch to skin every 3 days. 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 Gender Identity Not on file Sexual Orientation Not on file Last Filed Vital Signs Vital Sign Reading Time Taken Comments Blood Pressure 115/62 09/26/2010 8:31 AM CDT Pulse 93 09/26/2010 8:31 AM CDT Temperature - - Respiratory Rate 16 09/26/2010 8:31 AM CDT Oxygen Saturation 99% 09/26/2010 8:31 AM CDT Inhaled Oxygen Concentration - - Weight - - Height - - Body Mass Index - - Plan of Treatment Health Maintenance Due Date Last Done Comments BONE DENSITY TESTING 1950 COLOGUARD (AGES 45-75) - COL ON CA SCREENING 1950 COLON MONITORING 1950 COLONOSCOPY - COLON CA SCREENING 1950 CT COLONOGRAPHY - COLON CA SCREENING 1950 Colorectal Cancer Screening 1950 FIT - COLON CA SCREENING 1950 FLEX SIG - COLON CA SCREENING 1950 MAMMOGRAM 1950 HEPATITIS C SCREENING 12/22/1969 DTAP/TDAP/TD VACCINES (1 - Tdap) 12/26/1970 PNEUMOCOCCAL VACCINE 50+ (1 of 1 - PCV) 12/26/2001 ZOSTER VACCINE (1 of 2) 12/26/2001 DEPRESSION SCREENING 06/11/2024 COVID-19 VACCINE (1 - 2024-2 6 season) 2025 INFLUENZA VACCINE (#1) 2025 Respiratory Syncytial Virus (RSV) Vaccine Pt: or over 60 yrs (1 - 1-dose 75+ series) 12/26/2026 HEPATITIS B VACCINE Aged Out No longe r eligible based on patient's age to complete this topic HIB VACCINE Aged Out No longer eligi ble based on patient's age to complete this topic HPV VACCINE Aged Out No longer eligi ble based on patient's age to complete this topic MENINGOCOCCAL (Group B) VACC INE SHARED DECISION-MAKING Aged Out No longer eligibl e based on patient's age to complete this topic MENINGOCOCCAL GROUPS A/C/Y/W VACCINE Aged Out No longer eligible b ased on patient's age to complete this topic Care Teams Marine Service Station Attendant Relationship Specialty Start Date End Date Kristopher Grande MD [address] [place] [address] [facility] - General 08/11/10
== END 2025-05-20 13:48 | disposition home or self-care (01) ==
LOC: ANHFOHIMG 13:52
PROVIDERS: PCP Nurse Practitioner Family; Visit Provider Nurse Practitioner Family
DX: Z12.31 Encounter for screening mammogram for malignant neoplasm of breast (principal)
CPT/HCPCS: 77063; 77067